=== PATIENT | male | born 1980 | race Hispanic/Latino ===

== ENCOUNTER 2017-10-24 10:21 | Emergency (ER) | payer SELFPAY ==
[2017-10-24 11:00] LABS: APPEARANCE,URINE TURBID (CLEAR); BILIRUBIN,URINE SMALL (NEGATIVE); COLOR,URINE YELLOW (YELLOW); GLUCOSE, URINE (UA) NEGATIVE (NEGATIVE); KETONES,URINE NEGATIVE (NEGATIVE); LEUKOCYTE ESTERASE ,URINE MODERATE (NEGATIVE); NITRATE,URINE POSITIVE (NEGATIVE); OCCULT BLOOD,URINE LARGE (NEGATIVE); PH,URINE 6.5 (5.0-8.0); PROTEIN,URINE 100 (NEGATIVE)
[2017-10-24 11:12] LABS: BACTERIA,URINE Moderate /HPF (None Seen); RBC,URINE TNTC /HPF (0-1); SQUAMOUS EPITHELIAL CELL,UR Rare /LPF (0-2); WBC,URINE >100 /HPF (0-1)
[2017-10-24] MEDS ORDERED: LIDOCAINE HCL-MPF 1% 2ML VIAL ONE (11:29)
[2017-10-24] MEDS ORDERED: PHENAZOPYRIDINE HCL 200 MG TABLET ONE (11:30)
[2017-10-24] MEDS ORDERED: CEFTRIAXONE SODIUM 1 GM ONE (11:30)
== END 2017-10-24 12:06 | disposition home or self-care (01) ==
LOC: EDH 10:21
DX: N39.0 Urinary tract infection, site not specified (principal); R30.0 Dysuria; Z72.0 Tobacco use
CPT/HCPCS: 74018; 81001; 87088; 87186; 87486; 87797; 96372; 99285; J0696; J3490

== ENCOUNTER 2021-07-25 00:15 | Emergency (ER) | payer SELFPAY ==
[~2021-07-25] VITALS: Ht 188 cm; Wt 122.5 kg
[2021-07-25] MEDS ORDERED: KETOROLAC 60 MG VIAL (30MG/ML) IM ONE (02:00)
[2021-07-25] MEDS ORDERED: PENICILLIN V POTASSIUM 500 MG TABLET PO ONE (02:00)
[2021-07-25] MEDS ORDERED: HYDROCODONE/ACETAMINOPHEN 5/325 MG TAB PO ONE (02:00)
[2021-07-25] MEDS ORDERED: IBUP-2077 PO (02:38)
[2021-07-25] MEDS ORDERED: PENI500T2 PO (02:38)
[2021-07-25 03:05] VITALS: BP 142/74
== END 2021-07-25 02:57 | disposition home or self-care (01) ==
LOC: EDH 00:15
DX: K08.89 Other specified disorders of teeth and supporting structures (principal); Z79.1 Long term (current) use of non-steroidal anti-inflammatories (NSAID)
CPT/HCPCS: 96372; 99283; J1885